=== PATIENT | female | born 1985 | race African-American/Black ===

== ENCOUNTER 2016-09-14 16:21 | Emergency (ER) | payer MEDICAID ==
--- NOTE | 2016-09-20 08:44 | ER ---
ADMIT: 09/14/2016 RM/LOC: ER [facility] MR#: [id number] [place], [place] [id number] NORMA CONDON [address] [place] [address] Emergency Room Report SEX: F AGE: 31 : 1985 DATE: 09/14/2016 CHIEF COMPLAINT: Sore throat. HISTORY OF PRESENT ILLNESS: This is a pleasant 31-year-old black female, who presents with a days' duration of a sore throat. The patient admits to fever, severe sore throat, bilateral earache, swollen glands. Denies any runny nose, congestion, or cough. Has been using Tylenol and ibuprofen [id number] as directed. Denies any recent illness, headache, nausea, vomiting, shortness of breath, or chest pain. COURSE IN THE EMERGENCY ROOM: The patient was seen and examined. She does have an erythematous throat with some bilateral tonsillar exudates and swelling. She does have some cervical lymphadenopathy with some tenderness. IMPRESSION: Acute pharyngitis. DISPOSITION: The patient was given clindamycin 300 mg p.o. t.i.d. x10 days. She is to increase fluids as tolerated. Continue to use [id number]-[id number] Tylenol or Motrin as needed for pain. Return with worsening pain or symptoms. Return home and rest. Follow up with Dr. Webster as needed. Questions were sought and answered to the best of my ability and to the patient's satisfaction. Discharged in stable condition. MARICEL Rowe / Anatoliy Mckoy MD / farhadl JOB #: [id number] CC: Anatoliy Mckoy MD, Attending Physician José Mills MD, Family Physician
== END 2016-09-14 17:20 | disposition home or self-care (01) ==
LOC: ER 16:21
DX: J02.9 Acute pharyngitis, unspecified (principal); Z88.0 Allergy status to penicillin; Z88.1 Allergy status to other antibiotic agents; Z86.69 Personal history of other diseases of the nervous system and sense organs